=== PATIENT | female | born 1955 | race Caucasian/White ===

== ENCOUNTER 2018-08-10 10:14 | Day surgery (SDC) | payer MEDICAID ==
[~2018-08-10 10:14] MED LIST: Dexamethasone 4 MG/ML SDV ONE; Lactated Ringers 1,000 ML IV SCH; Lidocaine 1% 4 ML ONE; Lidocaine 1%/Sod Bicarbonate in NS 8.4% 1 ML Syringe IDERM PRN; Midazolam 1 MG/ML 2 ML SDV ONE; Ondansetron 4 MG/2 ML SDV ONE; Propofol 200 MG/20 ML SDV ONE; Rocuronium 50 MG/5 ML Vial ONE; Sodium Chloride 0.9% 10 ML Syringe FLUSH PRN; fentaNYL 250 MCG/5 ML SDV ONE
[2018-08-10] MEDS ORDERED: Dexamethasone 4 MG/ML SDV ONE (10:57)
[2018-08-10] MEDS ORDERED: Lidocaine 1% with EPINEPHrine 1:100,000 20 ML MDV ONE (10:59)
[2018-08-10] MEDS ORDERED: Bupivacaine 0.5%/EPINEPHrine 1:200,000 50 ML MDV ONE (11:00)
--- NOTE | 2018-08-10 11:14 | PCM.PREANE ---
Preanesthetic Assessment - Procedure Proposed Procedure: LAP CHOLEY - Anesthesia/Transfusion/Family Hx Anesthesia History: Prior Anesthesia Without Reaction Family History of Anesthesia Reaction: No Transfusion History: No Prior Transfusion(s) - Review of Systems General: No Symptoms Pulmonary: No Symptoms Cardiovascular: No Symptoms Gastrointestinal: No Symptoms Neurological: No Symptoms Other: Reports: Thyroid Problems, Sinus Problem - Physical Assessment NPO Status Date: 08/09/18 NPO Status Time: 22:30 (sip of water withpill this am) Pulse: 91 O2 Sat by Pulse Oximetry: 97 Respiratory Rate: 20 Blood Pressure: 170/91 Temperature: 98.4 F Height: 5 ft 10 in Weight: 134 kg ASA Class: 3 Mental Status: Alert & Oriented x3 Airway Class: Mallampati = 2 Dentition: Reports: Broken Tooth/Teeth, Missing Tooth/Teeth, Caries Thyro-Mental Finger Breadths: 3 Mouth Opening Finger Breadths: 3 ROM/Head Extension: Full Lungs: Clear to Auscultation, Normal Respiratory Effort Cardiovascular: Regular Rhythm - Allergies Allergies/Adverse Reactions: Allergies Allergy/AdvReac Type Severity Reaction Status Date / Time shrimp Allergy Cannot Verified 08/09/18 21:57 Remember - Acknowledgements Anesthesia Type Planned: General Anesthesia Pt an Appropriate Candidate for the Planned Anesthesia: Yes Alternatives and Risks of Anesthesia Discussed w Pt/Guardian: Yes Pt/Guardian Understands and Agrees with Anesthesia Plan: Yes PreAnesthesia Questionnaire Other HEENT History: wears glasses Cardiovascular History: Reports: None, Hypertension (high in hospital preop) Respiratory History: Reports: None Gastrointestinal History: Reports: Cholelithiasis, GERD (occ) Genitourinary History: Reports: Other (See Below) Other Genitourinary History: [employer] History: Reports: Other (See Below) Other OB/BYN History: VAGINITIS Musculoskeletal History: Reports: None Neurological History: Reports: None Psychiatric History: Reports: None Endocrine/Metabolic History: Reports: Hypothyroidism, Obesity/BMI 30+ Hematologic History: Reports: None Immunologic History: Reports: None Oncologic (Cancer) History: Reports: None Dermatologic History: Reports: None - Past Surgical History Head Surgeries/Procedures: Reports: None HEENT Surgical History: Reports: Oral Surgery Cardiovascular Surgical History: Reports: None Respiratory Surgical History: Reports: None GI Surgical History: Reports: None Female Surgical History: Reports: Breast Biopsy, Section, D&C Other Female Surgeries/Procedures: polypectomy 2008 Male Surgical History: Reports: None Endocrine Surgical History: Reports: None Neurological Surgical History: Reports: None Musculoskeletal Surgical History: Reports: None Oncologic Surgical History: Reports: None Dermatological Surgical History: Reports: None - SUBSTANCE USE Smoking Status *Q: Former Smoker (quit 1993) Tobacco Use Within Last Twelve Months: No Second Hand Smoke Exposure: No Days Per Week of Alcohol Use: 1 (1 drink a month) Recreational Drug Use History: No - HOME MEDS Home Medications: Home Meds Levothyroxine 1 tab PO DAILY 06/15/18 [History] Albuterol [Ventolin HFA] 1 - 2 puff INH Q4H PRN 08/09/18 [History] Ascorbate Calcium [Vitamin C] 500 mg PO DAILY 08/09/18 [History] Aspirin/Acetaminophen/Caffeine [Migraine Relief Caplet] 2 tab PO Q6H PRN [History] Ca Carbonate/Vitamin D3/Vit K [Calcium + D Soft Chewable Tab] 1 tab PO DAILY [History] Lactobacillus Acidophilus [Probiotic] 1 cap PO DAILY 08/09/18 [History] Magnesium 200 mg PO DAILY 08/09/18 [History] Multivitamin [Daily Multiple Vitamin] 1 tab PO DAILY 08/09/18 [History] - CURRENT (IN HOUSE) MEDS Current Meds: Current Medications Lactated Ringer's (Ringers, Lactated) 1,000 mls @ 125 mls/hr IV ASDIRECTED SIA Lidocaine/Sodium Bicarbonate (Buffered Lidocaine 1% In Ns 8.4%) 0.25 ml IDERM ONETIME PRN PRN Reason: Prior to IV Start Sodium Chloride (Saline Flush) 10 ml FLUSH ASDIRECTED PRN PRN Reason: Keep Vein Open Discontinued Medications Bupivacaine HCl/Epinephrine Bitart (Marcaine 0.5%/Epinephrine 1:200,000) Confirm Administered Dose 50 ml .ROUTE .STK-MED ONE Stop: 08/10/18 11:01 Dexamethasone (Dexamethasone) Confirm Administered Dose 4 mg .ROUTE .STK-MED ONE Stop: 08/10/18 09:09 Dexamethasone (Dexamethasone) Confirm Administered Dose 4 mg .ROUTE .STK-MED ONE Stop: 08/10/18 10:58 Fentanyl (Sublimaze) Confirm Administered Dose 250 mcg .ROUTE .STK-MED ONE Stop: 08/10/18 09:09 Lactated Ringer's (Ringers, Lactated) 1,000 mls @ 125 mls/hr IV ASDIRECTED SIA Stop: 07/27/18 23:00 Lidocaine HCl (Xylocaine-Mpf 1%) Confirm Administered Dose 4 mls @ as directed .ROUTE .STK-MED ONE Stop: 08/10/18 09:08 Lidocaine/Epinephrine (Xylocaine 1% With Epinephrine 1:100,000) Confirm Administered Dose 40 ml .ROUTE .STK-MED ONE Stop: 08/10/18 11:00 Lidocaine/Sodium Bicarbonate (Buffered Lidocaine 1% In Ns 8.4%) 0.25 ml IDERM ONETIME PRN PRN Reason: Prior to IV Start Stop: 07/27/18 18:00 Midazolam HCl (Versed 1 Mg/Ml) Confirm Administered Dose 2 mg .ROUTE .STK-MED ONE Stop: 08/10/18 09:09 Ondansetron HCl (Zofran) Confirm Administered Dose 4 mg .ROUTE .STK-MED ONE Stop: 08/10/18 09:08 Propofol (Diprivan 20 Ml) Confirm Administered Dose 200 mg .ROUTE .STK-MED ONE Stop: 08/10/18 09:08 [place] (Zemuron) Confirm Administered Dose 50 mg .ROUTE .STK-MED ONE Stop: 08/10/18 09:08 Sodium Chloride (Saline Flush) 10 ml FLUSH ASDIRECTED PRN PRN Reason: Keep Vein Open Stop: 07/27/18 18:00
[2018-08-10] MEDS: Lactated Ringers 1,000 ML IV SCH ×2 (11:15→14:33)
[2018-08-10] MEDS ORDERED: ceFAZolin 1 GM Vial ONE (11:25)
[2018-08-10] MEDS ORDERED: Albuterol 0.083% 2.5 MG/3 ML Neb Soln NEB ONE (11:37)
[2018-08-10] MEDS ORDERED: Albuterol 0.083% 2.5 MG/3 ML Neb Soln ONE (11:38)
[2018-08-10] MEDS ORDERED: Propofol 200 MG/20 ML SDV ONE (11:51)
[2018-08-10] MEDS ORDERED: Phenylephrine/Normal Saline 100 MCG/ML 10 ML Syringe ONE (12:07)
[2018-08-10] MEDS ORDERED: Lactated Ringers 1,000 ML ONE (12:14)
[2018-08-10] MEDS ORDERED: HYDROmorphone 0.5 MG/0.5 ML Syringe ONE (12:20)
[2018-08-10] MEDS ORDERED: Ondansetron 4 MG/2 ML SDV IVPUSH PRN ×2 (12:24→15:28)
[2018-08-10] MEDS ORDERED: HYDROmorphone 0.5 MG/0.5 ML Syringe IVPUSH PRN (12:24)
[2018-08-10] MEDS ORDERED: fentaNYL 100 MCG/2 ML SDV IVPUSH PRN (12:24)
[2018-08-10] MEDS ORDERED: Neostigmine Methylsulfate 1 MG/ML 5 ML Syringe ONE (12:25)
[2018-08-10] MEDS ORDERED: Rocuronium 50 MG/5 ML Vial ONE (12:45)
[2018-08-10] MEDS ORDERED: fentaNYL 100 MCG/2 ML SDV ONE (13:00)
[2018-08-10] MEDS ORDERED: Metoclopramide 10 MG/2 ML SDV ONE (13:13)
[2018-08-10] MEDS ORDERED: Ketorolac 30 MG/ML SDV ONE (13:38)
--- NOTE | 2018-08-10 13:48 | PCM.OPNOTE ---
- General Post-Op/Procedure Note Date of Surgery/Procedure: 08/10/18 Operative Procedure(s): laparoscopic cholecystectomy Findings: large fatty liver Pre Op Diagnosis: symptomatic cholelithiasis Post-Op Diagnosis: same Anesthesia Technique: General ET Tube Primary Surgeon: Belem Barnard Anesthesia Provider: Smita Horvath Pathology: gallbladder Fluid Replacement, Intraop: 1,600 Output, Urine Amount: 0 EBL in mLs: 25 Complications: none apparent Condition: Good
--- NOTE | 2018-08-10 13:55 | PCM.POSTAN ---
POST ANESTHESIA ASSESSMENT - MENTAL STATUS Mental Status: Alert, Oriented - VITAL SIGNS Pulse Rate: 105 SaO2: 95 Resp Rate: 17 Blood Pressure: 141/76 Temperature: 99 F - RESPIRATORY Respiratory Status: Respiratory Rate WNL, Airway Patent, O2 Saturation Stable, Supplemental Oxygen - CARDIOVASCULAR CV Status: Pulse Rate WNL, Blood Pressure Stable - GASTROINTESTINAL GI Status: No Symptoms - PAIN Pain Score: 0 - POST OP HYDRATION Hydration Status: Adequate & Stable
--- NOTE | 2018-08-10 16:20 | PCM.PRNOTE ---
- Free Text/Narrative Note: OPERATIVE REPORT Date of Surgery/Procedure: August 10, 2018 Operative Procedure(s): laparoscopic cholecystectomy Findings: Large fatty liver Pre Op Diagnosis: Symptomatic cholelithiasis Post-Op Diagnosis: Same Anesthesia Technique: General ET Tube Primary Surgeon: Belem Barnard MD Anesthesia Provider: Smita Horvath CRNA Pathology: Gallbladder with stones Fluid Replacement, Intraop: 1600cc Output, Urine Amount: 0cc EBL in mLs: 25 Drain/Tube Comments: None Indication for the procedure: The patient is a 63-year-old lady who presented to my office with episodic right upper quadrant pain. This is consistent with symptomatic cholelithiasis, as was confirmed on preoperative imaging. The patient was counseled for laparoscopic cholecystectomy, with possible conversion to open. After discussion of the risks of infection, bleeding and injury to the bile duct as well as increased complication from previous intra- abdominal surgery, the patient's consent was obtained. Description of the procedure: The patient presented to the outpatient holding area on the day of the procedure. The history and physical were verified and consent was present and on the chart. The patient was taken back to the operating room and placed in supine position on the operating table. SCD boots were placed and functional prior to the start of the procedure. Preoperative antibiotics were administered according to SCIP protocol, Ancef 3 g IV. A surgical timeout was performed. The patient then had induction of general anesthesia and was intubated without difficulty. The patient was prepped and draped in standard surgical fashion. We began by making a 5 mm incision in the left upper quadrant. A 5 mm port was inserted into the abdomen under direct visualization using the Visiport technique. The abdomen was then insufflated to 15 mmHg. We inserted a scope into the abdomen and inspected the area where we had entered. There was no evidence of injury to surrounding structures with no evidence of bile or bleeding. A TAP block was then performed using 1% lidocaine with epinephrine mixed with 0.5% bupivicaine with epinephrine. We then inserted a 12 mm port in the subxiphoid region as well as 2 additional 5 mm ports in the right upper quadrant. The patient was then positioned with head up and right side up to facilitate exposure of the gallbladder. Once we had sufficiently exposed the dome of the gallbladder, the contents of the gallbladder were aspirated to facilitate mobilization and exposure. This was grasped and retracted cephalad. We proceeded with our dissection to expose the cystic duct and cystic artery. We inserted an additional 5 mm port in the supraumbilical area to facilitate this dissection. We did have a critical view. The cystic duct and artery were then clipped and cut using endoscopic scissors. We then proceeded to fully dissect the gallbladder off of the cystic plate using the Bovie device. The gallbladder was in place in the Endo Catch bag and withdrawn through the subxiphoid port. We then inspected the area of the dissection. This was irrigated and suctioned. Any gallstones and bile that side. The gallbladder were suctioned and/or removed. There was good hemostasis at the end of the case. We then inspected the port sites and desufflated the abdomen. The ports were then removed. A superficial 4-0 monocryl suture was used to approximate the skin. The skin was covered with Dermabond surgical glue. The patient tolerated the procedure well and was extubated without difficulty. He was transported to the PACU in stable condition. All sponge, needle counts correct. No immediate complications noted. Complications: None apparent Condition: Good Belem Barnard MD General Surgery
[2018-08-10 16:53] VITALS: BP 144/70
--- NOTE | 2018-08-11 15:53 | PCM48HPAN ---
Post Anesthesia Note - EVALUATION WITHIN 48HRS OF ANESTHETIC Vital Signs in Normal Range: Yes Patient Participated in Evaluation: Yes Respiratory Function Stable: Yes Airway Patent: Yes Cardiovascular Function Stable: Yes Hydration Status Stable: Yes Pain Control Satisfactory: Yes Nausea and Vomiting Control Satisfactory: Yes Mental Status Recovered: Yes - COMMENTS/OBSERVATIONS Free Text/Narrative:: [id number]
== END 2018-08-10 18:25 | disposition home or self-care (01) ==
LOC: JD.SDS 10:14 → JD.MS 15:32 → JD.SDS 18:25
PROVIDERS: ATTEND Surgery
DX: K80.10 Calculus of gallbladder with chronic cholecystitis without obstruction (principal); I10 Essential (primary) hypertension; E03.9 Hypothyroidism, unspecified; E66.9 Obesity, unspecified; Z68.41 Body mass index [BMI] 40.0-44.9, adult; Z79.82 Long term (current) use of aspirin; Z79.899 Other long term (current) drug therapy; Z91.013 Allergy to seafood; Z87.891 Personal history of nicotine dependence
CPT/HCPCS: 47562; 94640; 94760; J0690; J1100; J1170; J1885; J2250; J2370; J2405; J2704; J2710; J2765; J3010; J3490; J7120; 00790; J2001